=== PATIENT | male | born 1940 | race Caucasian/White ===

== ENCOUNTER 2018-09-05 09:50 | Emergency (ER) | payer MEDICARE ==
[~2018-09-05] VITALS: Ht 170.2 cm; Wt 106.8 kg
[2018-09-05 11:19] VITALS: BP 176/76
== END 2018-09-05 11:32 | disposition home or self-care (01) ==
LOC: ER 09:51
DX: K40.90 Unilateral inguinal hernia, without obstruction or gangrene, not specified as recurrent (principal)
CPT/HCPCS: 99281